=== PATIENT | male | born 1990 | race Caucasian/White ===

== ENCOUNTER 2021-01-10 17:37 | Emergency (ER) | payer OTHER ==
[2021-01-10 17:51] VITALS: BP 122/81; PULSE 67; TEMP 99; BMI 30.5
[2021-01-10] MEDS ORDERED: OXYMETAZOLINE 0.05% NASAL SOLUTION 15 ML BOTTLE NS PRN (19:29)
== END 2021-01-10 20:34 | disposition home or self-care (01) ==
LOC: JER 17:37
DX: R04.0 Epistaxis (principal)
CPT/HCPCS: 99283-25

== ENCOUNTER 2023-01-03 20:06 | Emergency (ER) | payer OTHER ==
[2023-01-03 20:49] VITALS: BP 113/70; PULSE 74; RESP 20; TEMP 98.5; BMI 25.4
[2023-01-03] MEDS ORDERED: KETOROLAC TROMETHAMINE 30 MG/1 ML VIAL IM ONE (21:12)
[2023-01-03] MEDS ORDERED: KETOROLAC TROMETHAMINE 30 MG/1 ML VIAL ONE (21:12)
== END 2023-01-03 22:38 | disposition home or self-care (01) ==
LOC: JER 20:06 → JERFT 20:06
PROC: 3E0233Z Introduction of Anti-inflammatory into Muscle, Percutaneous Approach (ICD-10-PCS; principal; 2023-01-03)
DX: S20.211A Contusion of right front wall of thorax, initial encounter (principal); R07.81 Pleurodynia; W01.198A Fall on same level from slipping, tripping and stumbling with subsequent striking against other object, initial encounter; Y92.008 Other place in unspecified non-institutional (private) residence as the place of occurrence of the external cause
CPT/HCPCS: 71046-TC-FY; 71101-TC-RT-FY; 99284-25